=== PATIENT | male | born 1945 | race American Indian/Alaskan Native ===

== ENCOUNTER 2016-08-02 13:48 | Outpatient (CLI) | payer MEDICARE ==
--- NOTE | 2016-08-02 14:56 | Cat Scan Report ---
CT HEAD WITHOUT CONTRAST: HISTORY: Abnormal visual field in left eye. Serial contiguous axial images were obtained through the cranium. Intravenous contrast material was not administered. The ventricles are normal in size and appearance. There is no mass effect or midline shift. No areas of abnormally increased or decreased attenuation are seen. No mass lesion is seen. The mastoid air cells and visualized portions of the sinuses are normal. The orbital cavities and contents are symmetric and unremarkable. IMPRESSION: Cranial CT scan within normal limits. No clear explanation for visual field disturbance on noncontrast CT.
== END 2016-08-02 13:49 | disposition home or self-care (01) ==
LOC: CT 13:48
PROVIDERS: ATTEND Ophthalmology
DX: H53.452 Other localized visual field defect, left eye (principal)
CPT/HCPCS: 70450